=== PATIENT | male | born 1970 | race Hispanic/Latino ===

== ENCOUNTER 2021-10-27 14:37 | Emergency (ER) | payer OTHER ==
[~2021-10-27 14:37] MED LIST: Magnevist 469MG/ML 20 ML VIAL ONE
[2021-10-27 15:55] LABS: Bilirubin Small (Negative); Blood, Urine Negative (Negative); Glucose, Urine (Dipstick) Negative (Negative); Ketone, Urine Negative (Negative); Leukocyte Trace (Negative); Nitrite Positive (Negative); Protein, Urine (Dipstick) Trace mg/dL (Neg-Trace); Urobilinogen > or = 8.0 mg/dL (Less than 2)
[2021-10-27 16:00] LABS: Clarity Cloudy (Clear); Specific Gravity, Urine 1.022 (1.002-1.036)
[2021-10-27 16:01] LABS: Bacteria/HPF 4+ HPF (None Seen); RBC/HPF 0-3 HPF (0-3); Squamous Epithelial None Seen HPF (0-3); WBC/HPF 21-50 HPF (0-3)
[2021-10-27 17:08] LABS: #Eosinphils 0.3 thou/uL (0.0-0.7); #Lymphocytes 1.3 thou/uL (1.20-3.40); #Monocytes 0.4 thou/uL (0.11-0.59); #Neutrophils 2.8 thou/uL (1.40-6.50); %Basophils 0.1 % (0.0-1.0); %Eosinophils 6.7 % (0.0-10.0); %Lymphocytes 26.9 % (21.0-51.0); %Neutrophils 58.3 % (42.0-75.0); Hemoglobin 12.7 g/dL (14.0-18.0); Mean Corpuscular HGB CONC 35.5 g/dL (32.0-36.0); Mean Corpuscular Hemoglobin 35.6 pg (27.0-31.0); Mean Platelet Volume 7.2 fL (7.4-10.4); Platelet Count 62 thou/uL (130-400); RBC Distribution Width 13.6 % (11.5-14.5); Red Blood Cell (RBC) Count 3.57 mill/uL (4.70-6.10); White Blood Cell (WBC) Count 4.9 thou/uL (4.8-10.8)
[2021-10-27 17:21] LABS: MDiff Complete? YES; Platelet Morphology Comment Appears Decreased; Polychromasia SLIGHT = 2-3 cells (100X) (0-2/hpf)
[2021-10-27 17:31] LABS: ALT (SGPT) 20 U/L (8-55); AST (SGOT) 42 U/L (5-34); Albumin 2.8 g/dL (3.5-5.0); Alkaline Phosphatase 76 U/L (40-110); Anion Gap 10 mmol/L (10-20); BUN (Urea Nitrogen) 9 mg/dL (8.9-20.6); Bilirubin, Total 1.7 mg/dL (0.2-1.2); Calc. Creatinine Clearance 0 mL/min (70-130); Carbon Dioxide 24 mmol/L (22-29); Chloride 105 mmol/L (98-107); Globulin 4.6 g/dL (2.4-3.5); Glucose 93 mg/dL (70-105); Lipase 109 U/L (8-78); Potassium 4.7 mmol/L (3.5-5.1); Protein, Total 7.4 g/dL (6.0-8.3); Sodium 134 mmol/L (136-145)
[2021-10-27] MEDS ORDERED: methylPREDNISolone Sod Succ/PF 125 MG/2 ML VIAL ONE (20:01)
[2021-10-27] MEDS ORDERED: cefTRIAXone\\ROCEPHIN 1 GM VIAL ONE (22:26)
[2021-10-27 23:07] LABS: SARS-CoV-2 NAA Rapid Test Not Detected (NotDetected)
== END 2021-10-28 09:05 | disposition short-term general hospital (02) ==
LOC: ERS 14:37
DX: D49.7 Neoplasm of unspecified behavior of endocrine glands and other parts of nervous system (principal); R20.2 Paresthesia of skin; R15.9 Full incontinence of feces; Z20.822 Contact with and (suspected) exposure to COVID-19; J45.909 Unspecified asthma, uncomplicated; Z87.891 Personal history of nicotine dependence; Z79.899 Other long term (current) drug therapy
CPT/HCPCS: 36415; 72100; 72158; 80053; 81003; 81015; 83690; 85025; 87077; 87086; 87186; 96365; 96366; 96375; J0696; J2930; U0002